=== PATIENT | male | born 1950 | race Caucasian/White ===

== ENCOUNTER → 2023-08-17 10:21 | Outpatient (BNVA) | payer OTHER, SELFPAY | PROVIDERS: PCP Nurse Practitioner Family; Visit Provider Nurse Practitioner Family | DX: J98.8 Other specified respiratory disorders (principal); Z13.6 Encounter for screening for cardiovascular disorders; Z12.5 Encounter for screening for malignant neoplasm of prostate; Z13.29 Encounter for screening for other suspected endocrine disorder; Z12.2 Encounter for screening for malignant neoplasm of respiratory organs | CPT/HCPCS: 80053; 80061; 84443; 85025; G0103 ==

== ENCOUNTER 2023-10-11 08:31 | Outpatient (CLI) | payer OTHER, SELFPAY ==
--- NOTE | 2023-10-11 09:00 | CT_ITS ---
WS: [id number] LDCT LUNG CANCER SCREENING HISTORY: Z12.2 - Encounter for screening for malignant neoplasm of... TECHNIQUE: Axial imaging performed from the apices to 1 cm below the costophrenic angles. Coronal and sagittal reformats are submitted with axial MIP series. All CT scans at [facility] use at least one of these dose optimization techniques: automated exposure control; mA and/or kV adjustment per patient size (includes targeted exams where dose is matched to clinical indication); or iterativ e reconstruction. DLP: 54.10 mGy.cm DIvol: Mean CTDIvol: 0.80 (mGy) COMPARISON: None available. Diagnostic quality: Satisfactory Lungs: 3 mm noncalcified nodule RIGHT upper lobe, image 120 of series 5. There are a few benign scatt ered calcified granulomata. No mass or additional nodules. Heart: Normal size heart with no pericardial effusion.. Other findings: Mild atherosclerosis aorta. Small mediastinal and hilar lymph nodes. Small hiatal her radha. No adrenal mass. CT/CT lung screening [id number] IMPRESSION: LUNG-RADS: 2-Benign Appearance or Behavior FOLLOW UP: 12 Month: Continue annual screening with LDCT OTHER FINDINGS (S MODIFIER): None.
== END 2023-10-11 08:32 | disposition home or self-care (01) ==
PROVIDERS: PCP Nurse Practitioner Family; Visit Provider Nurse Practitioner Family
DX: Z12.2 Encounter for screening for malignant neoplasm of respiratory organs (principal); R91.1 Solitary pulmonary nodule; J84.10 Pulmonary fibrosis, unspecified
CPT/HCPCS: 71271

== ENCOUNTER → 2024-05-09 14:24 | Outpatient (BNVA) | payer MEDICARE, SELFPAY | PROVIDERS: PCP Nurse Practitioner Family; Visit Provider Nurse Practitioner Family | DX: J44.9 Chronic obstructive pulmonary disease, unspecified (principal); R91.1 Solitary pulmonary nodule | CPT/HCPCS: 71046 ==

== ENCOUNTER 2024-05-24 10:44 | Outpatient (CLI) | payer MEDICARE, SELFPAY ==
[2024-05-24 11:08] VITALS: PULSE 60; RESP 18; O2SAT 95
[2024-05-24] MEDS: albuterol 2.5 mg/3 mL Neb INHALATION (11:08)
== END 2024-05-24 10:45 | disposition home or self-care (01) ==
PROVIDERS: PCP Nurse Practitioner Family; Visit Provider Nurse Practitioner Family
DX: J44.9 Chronic obstructive pulmonary disease, unspecified (principal); J98.8 Other specified respiratory disorders
CPT/HCPCS: 94060; 94726; 94729; J7613

== ENCOUNTER 2024-06-28 13:31 | Outpatient (CLI) | payer MEDICARE, SELFPAY ==
[2024-06-28] MEDS: iohexol 350 mg/mL 500 mL Btl (per mL) PO (13:42)
--- NOTE | 2024-06-28 14:00 | CT_ITS ---
WS: [id number] CT ABDOMEN AND PELVIS WITH CONTRAST HISTORY: R14.0 - Abdominal distension (gaseous) TECHNIQUE: Imaging performed of the abdomen and pelvis with IV contrast. Single phase imaging of the abdomen. Coronal and sagittal reformats are submitted. All CT scans at [facility] use at least one of these dose optimization techniques: automated exposure control; mA and/or kV adjustment per patient size (includes targeted exams where dose is matched to clinical indication); or iterative reconstruction. IV CONTRAST: Omnipaque 350; 100 mL IV. Oral contrast: Yes. DLP: 350.31 mGy.cm COMPARISON: None available. Lower thorax: Hypoexpanded lung bases. No pulmonary mass. Mild dependent changes at the lung bases. These dependent changes are new since 10/11/2023. There is a slight nodular component measuring 6.7 mm at the LEFT lung base. Heart is normal size. Small hiatal hernia. Liver/biliary system: Too small to characterize 3 mm low-attenuation nodule in the posterior RIGHT lobe of the liver. Portal vein is normal. Gallbladder: Normal. No gallstones or wall thickening. No pericholecystic fluid. Pancreas: Normal size pancreas and pancreatic duct. No adjacent inflammation. Spleen: Normal size with granulomata. Adrenal glands: Normal. Right kidney: Normal. Left kidney: Normal. Aorta: Mild atherosclerosis with no aneurysm. Lymphadenopathy: None. Free fluid: None. GI tract: Stomach is not distended. No small bowel obstruction. Appendix is not definitely identified. There is no evidence for appendicitis. Mild diffuse constipation. There are a few sigmoid diverticula. No acute diverticulitis. Mild narrowing of the distal colon but there is no mass. Abdominal wall: Fat containing umbilical hernia. Pelvis: Normally distended urinary bladder. Mild prostate enlargement. There is a small nodule in the presacral space measuring 8 mm. Closely associated with the rectum. No additional nodules are identified. Bones: L5-S1 mild facet joint arthropathy. CT/CT abdomen pelvis w con* [id number] IMPRESSION: 1. Mild diffuse constipation. No colitis or stricture identified. 2. No ascites. 3. Indeterminate 8 mm RIGHT presacral nodule. May be a small lymph node. No ad ditional adenopathy. Consider follow-up CT evaluation in 3 months. 4. Mild atherosclerosis aorta 5. No renal obstruction. 6. Chronic emphysema. New 6.7 mm nodule at the LEFT lung base associated with linear atelectasis. This can be reevaluated also in 3 months. 7. Small hiatal hernia.
[2024-06-28 14:33] LABS: Blood Urea Nitrogen 15 mg/dL (8-23)
[2024-06-28] MEDS: iohexol 350 mg/mL 500 mL Btl (per mL) IV (15:53)
== END 2024-06-28 13:32 | disposition home or self-care (01) ==
LOC: RAD 13:33
PROVIDERS: PCP Nurse Practitioner Family; Visit Provider Nurse Practitioner Family
DX: R10.9 Unspecified abdominal pain (principal); R10.819 Abdominal tenderness, unspecified site; K59.00 Constipation, unspecified; R19.09 Other intra-abdominal and pelvic swelling, mass and lump; I70.0 Atherosclerosis of aorta; J43.8 Other emphysema; R91.1 Solitary pulmonary nodule; K44.9 Diaphragmatic hernia without obstruction or gangrene; R91.8 Other nonspecific abnormal finding of lung field; D73.89 Other diseases of spleen; K57.30 Diverticulosis of large intestine without perforation or abscess without bleeding; R93.89 Abnormal findings on diagnostic imaging of other specified body structures; K42.9 Umbilical hernia without obstruction or gangrene; N40.0 Benign prostatic hyperplasia without lower urinary tract symptoms; M47.897 Other spondylosis, lumbosacral region
CPT/HCPCS: 74177; 82565; 84520

== ENCOUNTER 2024-09-07 12:38 | Outpatient (CLI) | payer MEDICARE, SELFPAY ==
[2024-09-07] MEDS: iohexol 350 mg/mL 500 mL Btl (per mL) PO (13:35)
[2024-09-07 13:40] LABS: Blood Urea Nitrogen 13 mg/dL (8-23)
--- NOTE | 2024-09-07 13:45 | CTR_ITS ---
PROCEDURE INFORMATION: Exam: CT Abdomen And Pelvis With Contrast Exam date and time: 09/07/2024 1:44 PM Age: 73 years old Clinical indication: Abnormal findings; Abnormal radiologic finding of the abdomen; Prior surgery; Surgery date: 6+ months; Surgery type: Hernia, appy; Follow up to CT abd/pel on 06-28-24; Additional info: R19.09 - other intra-abdominal and pelvic swelling, mass . . . , schedule in 10 weeks TECHNIQUE: Imaging protocol: Computed tomography of the abdomen and pelvis with contrast. Radiation optimization: All CT scans at this facility use at least one of these dose optimization techniques: automated exposure control; mA and/or kV adjustment per patient size (includes targeted exams where dose is matched to clinical indication); or iterative reconstruction. Contrast material: OMNIPAQUE 350; Contrast volume: 100 ml; Contrast route: INTRAVENOUS (IV); Other contrast: Oral, OMNIPAQUE 350, 50; COMPARISON: CT abdomen pelvis w con* [id number] 06/28/2024 2:40 PM RADIATION DOSE METRICS: Total DLP (mGy-cm): 376.57 FINDINGS: Liver: Normal. No mass. Gallbladder and biliary ducts: Normal. No calcified stones. No ductal dilation. Pancreas: Normal. No ductal dilation. Spleen: Normal. No splenomegaly. Adrenal glands: Normal. No mass. Kidneys and ureters: Normal. No hydronephrosis. Stomach and bowel: Likely constipation with a large amount of colonic fecal material observed. Appendix: No evidence of appendicitis. Intraperitoneal space: Unremarkable. No free air. No significant fluid collection. Vasculature: Unremarkable. No abdominal aortic aneurysm. Lymph nodes: Unremarkable. No enlarged lymph nodes. Urinary bladder: Unremarkable as visualized. Reproductive: Unremarkable as visualized. Bones/joints: Unremarkable. No acute fracture. Soft tissues: Unremarkable. Other findings: Stable 8 mm nodular density just to the right of the midline at the level of the low sacrum is unchanged. It has a slightly thickened wall and appears to be cystic. CT/CT abdomen pelvis w con* [id number] IMPRESSION: Stable 8 mm nodule in the presacral space to the right of the midline. While likely benign etiology is unknown. Additional follow-up CT in 9-12 months recommended.
[2024-09-07] MEDS: iohexol 350 mg/mL 500 mL Btl (per mL) IV (13:51)
== END 2024-09-07 12:39 | disposition home or self-care (01) ==
PROVIDERS: PCP Nurse Practitioner Family; Visit Provider Nurse Practitioner Family
DX: R19.09 Other intra-abdominal and pelvic swelling, mass and lump (principal)
CPT/HCPCS: 74177; 82565; 84520

== ENCOUNTER → 2024-12-27 10:38 | Outpatient (BNVA) | payer MEDICARE, SELFPAY | PROVIDERS: PCP Nurse Practitioner Family; Visit Provider Nurse Practitioner Family | DX: R30.0 Dysuria (principal) | CPT/HCPCS: 81000 ==

== ENCOUNTER 2025-02-18 15:27 | Emergency (ER) | payer MEDICARE, SELFPAY ==
--- OUTSIDE RECORDS SUMMARY | 2024-12-25 07:00 | XMS_ITS ---
Author Organization [facility] Address [address] [place] [id number] Care Team Providers Care Company Driver Name Role Phone Linda Liao (Kayly) Primary Care Provider U Bridger Galindo [phone] Encounters Encounter Location Date Provider Diagnosis [facility] [address] [place] [address] [place] [address] 12/25/2024 Bridger Thorpe Plan Of Treatment Next Appt Details Provider Name:Bridger Thorpe, 11/01/2025 11:20:00 AM, [address] [place] [address] DR [place] [address] [place] [address], [phone], Progress Notes * ESTHER SLAUGHTER LDOB:[birth year] (74 yo M)Acc No.[id number]:12/25/2024 Progress Notes Patient: ESTHER ALFONSO Provider: Christel Thorpe MD :1950 A ge:74 Y S ex:Male Date:12/25/2024 Address:[address] [id number] Pcp:CELI Farrell (Kayly) * Electronic signature of Esther Thorpe MD on 02/18/2025 at 03:37 PM RAILROAD OPERATOR Sign off status: Pending * Provider: Christel Thorpe MD Date: 0 12/25/2024 Generated for Gris felder/Mera/Lauraitting on: 04/20/2024 03:37 PM RAILROAD OPERATOR
[2025-02-18] VITALS (9 sets, daily range): BP systolic 141–151; BP diastolic 72–76; PULSE 82; TEMP 36.4; O2SAT 83–95; BMI 22.4
--- OUTSIDE RECORDS SUMMARY | 2025-02-18 15:37 | XMS_ITS | Clinical Summary ---
Author Organization [facility] Address [address] 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
--- OUTSIDE RECORDS SUMMARY | 2025-02-18 15:37 | XMS_ITS | Clinical Summary ---
Author Organization [facility] Address [address] [place] [address] Phone Care Team Providers Care Kitchen Porter Name Role Phone Unavailable Primary Care Provider Unavailabl e Allergies Active Allergy Reactions Criticality Noted Date Comments Sulfa (Sulfonamide Antibiotics) Unknown 04/29 Medications famotidine (PEPCID) 20 mg Oral tablet Take 1 Tab by mouth 2 times daily. 60 Tab None 0 Active oxazepam (SERAX) 15 mg Oral capsule Take 1 Cap by mouth 4 times daily as needed. 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 Gender Identity Not on file Sexual Orientation Not on file Last Filed Vital Signs Vital Sign Reading Time Taken Comments Blood Pressure 175/96 05/16/2009 2:40 AM BOATWRIGHT Pulse 89 05/16/2009 2:40 AM BOATWRIGHT Temperature 37.1 C (98.8 F) 05/15/2009 10:55 PM BOATWRIGHT Respiratory Rate 20 05/16/2009 2:40 AM BOATWRIGHT Oxygen Saturation 96% 05/16/2009 2:40 AM BOATWRIGHT Inhaled Oxygen Concentration - - Weight 83.9 kg (185 lb) 05/15/2009 10:55 PM BOATWRIGHT Height 185.4 cm (6' 1 ) 05/15/2009 10:55 PM BOATWRIGHT Body Mass Index 24.41 05/15/2009 10:55 PM BOATWRIGHT Plan of Treatment Health Maintenance Due Date Last Done Comments DTAP/TDAP/TD VACCINES (1 - Tdap) 10/07/1971 COLORECTAL SCREENING 1997 Colorectal Cancer Screening 1997 FIT-DNA Q 3 years 1997 FIT/FOBT Q 1 year 1997 Flex Sig/CT Colonography Q 5 years 1997 PNEUMOCOCCAL VACCINE 50+ YEARS (1 of 1 - PCV) 10/07/19 03 ZOSTER VACCINE (1 of 2) 2002 INFLUENZA VACCINE (#1) 2024 RSV VACCINE (60+ or ) (1 - 1-dose 75+ series) 10/07/2027
--- OUTSIDE RECORDS SUMMARY | 2025-02-18 15:37 | XMS_ITS | Patient Health Record ---
Author Organization [facility] Address [address] [place] [address] Care Team Providers Care Remote Operations Producer Name Role Phone Linda Liao (Kayly) Primary Care Provider U Bridger Galindo Unavailable [phone] Allergies Allergen (clinical drug ingredient) Drug/Non Drug Allergy documented on EMR Reaction Allergy Type Onset Date Status Penicillin Unknown Drug Allergy Active Substance with sulfonamide structure and antibacterial mechanism of action (substance) Sulfa Antibiotics Unknown Drug Allergy Active Results Component Value Reference Range Notes CT Chest w/o Contrast diagno [id number] Reviewed date:11/08/2024 11:55:18 AM Interpretation: Performing Lab: Notes/Report: tkg=[id number]&org=iSite CT Chest w/o Contrast diagno stic-[id number] Reviewed date:11/08/2024 11:55:18 AM Interpretation: Performing Lab: Notes/Report: See Below For Report CT Chest w/o Contrast Read See Below For Report Schedule Confirmation Reviewed date:11/08/2024 11:55:18 AM Interpretation: Performing Lab: Notes/Report: CT Chest w/o Contrast Schedule Confirmation Reviewed date:10/17/2024 03:37:18 PM Interpretation: Performing Lab: Notes/Report: CT Chest w/o Contrast Reason For Referral Reason COPD / Solitary Pulm onary Nodule PFT and CXR order placed, per referral notes - 06/06: PFT received 3/12: 6 mons per Maurilio Scheduled 12/25/2024 @ 1 PM Diagnosis 1 Chronic obstructive pulmonary disease, unspecified (J44.9) Diagnosis 2 Solitary pulmonary n odule (R91.1) Referring Provider First Name Linda guerra' Referring Provider Last Name Referring Provider Speciality Nurse Prac titioner Referred Organization [facility] Referred Provider Bridger Thorpe Referred Address [address] [place] [address] [address] [place],[address],[place] Referred Provider Specialty Pulmonary Di seases General Notes Gwendolyn Valente 025 12:56:05 PM >PFT report received. In Outside Records, Berenice Gutierrez 06/07/2024 03:30:07 PM >312: Gave Maurilio CXR report 05/09/2024, Berenice Gutierrez 06/07/2024 03:34:16 PM >312: 6 mons per Matt Thorpe Meranda 06/07/2024 04:10:35 PM >Scheduled 12/25/2024 @ 1 PM Referral Priority Routine Medications Medication SIG (Take, Route, Frequency, Duration) Notes Start Date End Date Status Trelegy Ellipta 100-62.5-25 MCG/ACT Aerosol Powder Breath Activated 1 puff (rinse mouth after use) Inhalation Once a day; Duration: 90 days Active Albuterol Sulfate HFA 108 (90 Base) MCG/ACT Aerosol Solution 1 puff as needed Inhalation every 4 hrs Active Vitamin E Active Zinc Active Vitamin D Active Multivitamin Active Fish Oil Active Social History Tobacco Use: Social History Observation Description Date Details (start date - stop date) Former Smoker NA - NA Social History Tobacco Use: Social Info Question Answer Notes Tobacco Control (Standard) Tobacco use: Former smoker How long has it been since you last smoked? 5-10 years Problems Problem Type SNOMED Code ICD Code Onset Dates Problem Status W/U Status Risk Notes Problem Tobacco user (789660042) Nicotine dependence, cigarettes, in remission (F17.211) Active confirmed Problem Solitary pulmonary nodule (834511542) Solitary pulmonary nodule (R91.1) Active confirmed Problem Radiology result abnormal (397376951) Abnormal chest CT (R93.89) Active confirmed Problem Chronic obstructive pulmonary disease (68717379) Stage 3 severe COPD by GOLD classification (J44.9) Active confirmed Problem Chronic respiratory failure (72497204) Chronic hypoxic respiratory failure (J96.11) Active confirmed Vital Signs Heart Rate 67 /min 11/01/2024 Walked patient in clinic. O2 lowest point was 88%. Put on 2L. Stable at 95% o2 Temperature 97.3 degrees Fahrenheit 11/01/2024 Walk ed patient in clinic. O2 lowest point was 88%. Put on 2L. Stable at 95% o2 Respiratory Rate 16 /min 10/16/2024 Height-cm 182.88 cm 11/01/2024 Walked patient in clinic. O2 lowest point was 88%. Put on 2L. Stable at 95% o2 Oximetry 92 % 11/01/2024 Walked patient in clinic. O2 lowest point was 88%. Put on 2L. Stable at 95% o2 Blood pressure diastolic 66 mm Hg 11/01/2024 Wal ked patient in clinic. O2 lowest point was 88%. Put on 2L. Stable at 95% o2 Weight-kg 83.3 kg 11/01/2024 Walked patient in clinic. O2 lowest point was 88%. Put on 2L. Stable at 95% o2 Height 72 in 11/01/2024 Walked patient in clinic. O2 lowest point was 88%. Put on 2L. Stable at 95% o2 Blood pressure systolic 113 mm Hg 11/01/2024 Walk ed patient in clinic. O2 lowest point was 88%. Put on 2L. Stable at 95% o2 Weight 183.64 lbs 11/01/2024 Walked patient in clinic. O2 lowest point was 88%. Put on 2L. Stable at 95% o2 BMI 24.9 kg/m2 11/01/2024 Walked patient in clinic. O2 lowest point was 88%. Put on 2L. Stable at 95% o2 Procedures Procedure Date Ordered Date Performed Result Body Sit e Overnight Oximetry 10/16/2024 N/A Encounters Encounter Location Date Provider Diagnosis [facility] [address] [place] [address] [place] [address] 11/01/2024 Bridger Thorpe Stage 3 severe COPD by GOLD classification J44.9 ; Nicotine dependence, cigarettes, in remission F17.211 ; Abnormal chest CT R93.89 ; Shortness of breath R06.02 and Chronic hypoxic respiratory failure J96.11 [facility] [address] [place] [address] [place] [address] 10/16/2024 Bridger Thorpe Stage 3 severe COPD by GOLD classification J44.9 ; Nicotine dependence, cigarettes, in remission F17.211 ; Abnormal chest CT R93.89 and Shortness of breath R06.02 [facility] [address] [place] [address] [place] [address] 10/25/2024 Bridger Thorpe [facility] [address] [place] [address] [place] [address] 10/10/2024 Bridger Thorpe [facility] [address] [place] [address] [place] [address] 11/02/2024 Bridger Thorpe Assessments Encounter Date Diagnosis (ICD Code) Assessment Notes Treatment Notes Treatment Clinical Notes Section Notes 10/16/2024 Nicotine dependence, cigarettes, in remission (ICD-10 - F17.211) Patient smoked a [id number] for 48 years. He has been abstinent since 2018. Obtain Chest CT for lung cancer screening 10/16/2024 Stage 3 severe COPD by GOLD classification (ICD-10 - J44.9) Stage III COPD I told him to monitor his oxygen saturation levels with exertion. He is to use his albuterol and keep it handy when he goes outdoors. Continue Albuterol HFA as needed. Continue Trelegy. I will decrease this to 100mcg. 11/01/2024 Nicotine dependence, cigarettes, in remission (ICD-10 - F17.211) Patient smoked a [id number] for 48 years. He has been abstinent since 2018. 11/01/2024 Stage 3 severe COPD by GOLD classification (ICD-10 - J44.9) Stage III COPD Continue Albuterol HFA as needed. Continue Trelegy. 10/16/[address] (ICD-10 - R93.89) Calcified nodules. Obtain chest CT. 11/01/[address] (ICD-10 - R93.89) Calcified nodules. Obtain chest CT. 11/01/2024 Shortness of breath (ICD-10 - R06.02) 10/16/2024 Shortness of breath (ICD-10 - R06.02) If the patients oxygen saturation is in the mid to low 90's again next visit we will walk him for titration. Obtian overnight oximetry on room air. 11/01/2024 Chronic hypoxic respiratory failure (ICD-10 - J96.11) Patients room air oxygen saturation at rest was 93%. His ambulatory saturation on room air was 88%. He was placed on 2Lpm conserving which brought him up to 95%. I will order him daytime oxygen. Patient also had significant desaturation on overnight oximetry. I would have him use his oxygen at night as well to maintain a saturation above 88%. DME: Gabbi 10/16/2024 Other Lisa Yao, kandace scribing for, and in the presence of Dr. Bridger Thorpe. I, Dr. Bridger Thorpe, personally performed the services described in this documentation, as scribed by Lisa Hilliard in my presence, and it is both accurate and complete. 11/01/2024 Other Lisa Yao am scribing for, and in the presence of Dr. Bridger Thorpe. I, Dr. Bridger Thorpe, personally performed the services described in this documentation, as scribed by Lisa Hilliard in my presence, and it is both accurate and complete. Plan Of Treatment Pending Test Test Name Order Date Overnight Oximetry 10/16/2024 Future Test Test Name Order Date CT Chest w/o Contrast diagnostic-[id number] 10/18/2025 Next Appt Details Provider Name:Bridger Thorpe, 11/01/2025 11:20:00 AM, [address] [place] [address] [address] [place], [place], [address], Insurance Providers Payer Name Payer Address Payer Phone Subscriber Number Group Number Insured Name Patient Relationship to Insured Coverage Start Date Coverage End Date [employer] Medicare Replacement [address] [place] [address] [id number] ESTHER SLAUGHTER Self - patient is the insured [place] [address] [place] [phone] [id number] ESTHER SLAUGHTER Self - patient is the insured Medical (General) History Medical History History ICD Code Pneumonia Hernia Surgical History Surgery Date(Month/Year) appendectomy 1958 hernia 1957 Hospitalization History Reason Date(Month/Year) See Above Broken Pelvis 1973
--- NOTE | 2025-02-18 15:40 | W.ED.TRAUMA ---
HPI - Trauma General: Chief Complaint: Trauma Stated Complaint: tree stand Time Seen by Provider: 02/18/25 15:40 Source: patient and family Mode of arrival: ambulatory Limitations: no limitations History of Present Illness: Patient is in a 74-year-old male presents to ED today following a fall from a deer stand. He states that the stand fell from the tree and he essentially rode it down . Patient states he did strike the right side of his scalp on the ground. No LOC. He is not on anticoagulation. He does have an abrasion and possible laceration here. Tetanus is not up-to-date. He states his neck feels sore but overall not much discomfort. He has been ambulatory without difficulty or assistance since the fall. He has no pain to his back or chest. No abdominal pain. His main complaint seems to be pain to his distal left wrist. He states he has broke this wrist before. MD complaint: fall Onset (ago): hour(s) Loss of Consciousness: no Location: head Location - Extremities: Left: wrist Severity: moderate Associated symptoms: Reports headache(s); Denies abdominal pain, back pain, chest pain, dizziness, epistaxis or syncope Related Data Previous Rx's ?Medication ?Instructions ?Recorded compressor, for nebulizer #1 ea 06/13/24 nebulizer accessories #1 ea 06/13/24 fluticasone fur. 200 mcg-umeclid 1 inh inhalation DAILY #60 ea 09/07/24 62.5 mcg-vilant 25 mcg inhalat.powder (Trelegy Ellipta) albuterol sulfate 90 mcg/actuation 2 puff inhalation QID PRN 09/25/24 aerosol inhaler shortness of breath or wheezing #6.7 grams cyclobenzaprine 10 mg tablet 10 mg PO .HS #14 tabs 12/27/24 doxycycline hyclate 100 mg capsule 100 mg PO BID #14 caps 02/05/25 prednisone 20 mg tablet 20 mg PO BID #10 tabs 02/05/25 hydrocodone 5 mg-acetaminophen 325 1 tab PO Q6H PRN pain #14 tabs 02/18/25 mg tablet Allergies Allergy/AdvReac Type Severity Reaction Status Date / Time Penicillins Allergy Unknown Unknown Verified 02/18/25 15:38 Sulfa (Sulfonamide Allergy Unknown Unknown Verified 02/18/25 15:38 Antibiotics) Review of Systems Eyes: Denies: change in vision, blurry vision, photophobia, eye discharge, floaters or seeing flashes ENMT: Denies: throat pain, odynophagia, ear or mastoid pain, ear discharge, nasal discharge, epistaxis or sinus pain Card: Denies: chest pain, palpitations, lightheadedness, syncope or pre-syncope Resp: Denies: dyspnea or pain on inspiration GI: Denies: abdominal pain : Denies: flank pain or hematuria Musc: Reports: neck pain, joint pain (L wrist) and joint swelling (L wrist); Denies: back pain or extremity pain Skin/Breast: Reports: other (R scalp abrasion) Neuro: Reports: headache(s); Denies: numbness in extremities, weakness in extremities, sensory changes or dizziness PFSH ED PFSH: Social History Smoking and tobacco/nicotine status: former use of tobacco/nicotine Quit status (tobacco/nicotine): has quit using Year quit tobacco: 7-8 YEARS AGO Second hand smoke exposure: No Alcohol intake: never Substance/Drug Use: never Adopted: No Caregiver/support person: No Lives independently: Yes Household members: spouse Housing: House Marital status: Highest education level completed: Some College, No Degree service: No Current occupational status: employed Pets and animals: No Physical Exam Const: COMMON NORMALS: no acute distress, average body habitus, patient oriented x3, no limitations, healthy appearing, alert and well nourished GENERAL APPEARANCE: cooperative ORIENTATION/CONSCIOUSNESS: Yes awake, Yes oriented to person, Yes oriented to place and Yes oriented to time HENMT: COMMON NORMALS: normocephalic and TM's normal bilaterally HEAD & SCALP: normocephalic and other (R minor parietal scalp abrasion/small laceration); no More's sign, no hematoma, no laceration, no palpable skull fracture and no raccoon eyes FACE & SINUS: normal facial exam TYMPANIC MEMBRANE: TM's normal bilaterally MOUTH: other (no intraoral injuries noted) Eye: COMMON NORMALS: Equal, round and reactive pupils present and EOMs intact bilaterally GENERAL EYE: appearance normal, both eyes and all related structures and normal light reflex PUPIL: Yes Equal, round and reactive pupils present DIRECT OPHTHALMOSCOPY: Yes normal light reflex Neck/C-Spine: GENERAL: Yes normal visual inspection CERVICAL SPINE: Yes cervical ROM normal, No pain with cervical ROM, Yes Cervical spine tenderness (mild-states feels sore), No step off deformity, No Paracervical muscle tenderness and No Trapezius muscle tenderness Chest: COMMONS NORMALS: normal inspection of the chest and normal palpation of entire chest wall Resp: COMMON NORMALS: normal respiratory effort and clear to auscultation bilaterally AUSCULTATION: clear to auscultation bilaterally Cardio: COMMON NORMALS: regular rate and regular rhythm RATE: regular rate RHYTHM: regular rhythm GI: COMMON NORMALS: Normal to inspection, nondistended, normoactive bowel sounds present, Soft to palpation, non-tender, No hepatosplenomegaly present and no masses INSPECTION: Yes normal to inspection and No abdominal wall ecchymosis AUSCULTATION: Yes normoactive bowel sounds PALPATION: Yes Soft to palpation and Yes No hepatosplenomegaly present Back/Pelvis: COMMON NORMALS: thoracic and lumbar spine normal to inspection, no thoracic nor lumbar tenderness and thoraco-lumbar ROM normal Extremity: COMMON NORMALS: capillary refill normal GENERAL: Yes normal exam except as noted LEFT UPPER EXTREMITY: Yes wrist (TTP/edema distal L wrist) Left wrist: Yes ROM (limited due to pain) and Yes neurovascular exam (normal) Neuro: DANETTE COMA SCALE: document GCS findings [place] coma scale eye opening: Spontaneous [place] coma scale verbal response: Orientated [place] coma scale motor response: Obey commands Danette coma scale total score: 15 COMMON NORMALS: patient oriented x3, CN's II-XII intact bilaterally, moves all extremities, no focal motor deficits, no sensory deficits noted and gait normal SENSORIUM/ORIENTATION: Yes alert, Yes oriented to person, Yes oriented to place and Yes oriented to time SPEECH: speech normal GAIT: Yes Normal gait present Skin: COMMON NORMALS: no rashes or lesions noted GENERAL SKIN EXAM: no rashes or lesions noted TRAUMA: abrasion (R scalp abrasion) and laceration Procedures Laceration Laceration 1: Site: scalp Side (If applicable): right Size (cm): 2.0 Description: linear Depth: simple, single layer Local Anesthetic: lidocaine 1% and with epi Amount of anesthesia used (mL): 2.0 Pre-repair: wound explored and irrigated extensively Skin layer closed with: other (naye) Number of sutures: 4 Course Vital Signs: Vital signs: Vital Signs Temperature 97.5 F L 02/18/25 15:30 Pulse Rate 82 02/18/25 15:30 Blood Pressure 141/76 02/18/25 16:40 Pulse Oximetry 90 02/18/25 16:40 Oxygen Delivery Me thod Room Air 02/18/25 15:30 MDM - Trauma Medical Decision Making Patient is in a 74-year-old male here after he fell from a deer stand. His only physical complaint upon arrival is a headache and left wrist pain. He did complain of his neck feeling sore. CT imaging of his head and neck obtained and unremarkable. He does have a left distal radial fracture. This will be splinted and he will follow-up with ortho. He did have a small scalp laceration that was copiously irrigated and repaired using naye. Wound care/infection precautions discussed. Medical Records I reviewed the patient's medical records. Lab Data Radiology Impressions Cervical Spine CT 02/18/25 15:46 IMPRESSION: 1. No acute cervical spine fracture. 2. Central disc herniation at C3-C4 and C4-C5, age indeterminate. 3. Significant neural foraminal stenosis on the right at C5-C6 and on the left at C6-C7 due to prominent hypertrophic changes at the uncovertebral joints. COMMENTS: Consistent with the [employer] [place] [employer]'s Incidental Findings Committee white paper (J Am Amelie Radiol 2015): In patients aged 35 years and older with an incidental thyroid nodule equal to or greater than 1.[address], MRI or extrathyroidal US, further evaluation with dedicated thyroid US is recommended for patients with normal life expectancy and without comorbidities. For smaller nodules without suspicious features, no further evaluation or follow up is recommended. Head CT 02/18/25 15:46 IMPRESSION: 1. No acute intracranial bleed. 2. Chronic small vessel ischemic disease. 3. Atrophic and/or age-related volume loss. Wrist X-Ray 02/18/25 15:46 IMPRESSION: Comminuted intra-articular pilon fracture of the distal radius. No identified significant articular step-off. All radiology interpretation(s) finalized by discharge Discharge Plan Discharge Patient Disposition: Home Clinical Impression: Fall from tree Qualifiers: Encounter type: initial encounter Qualified Code(s): W14.XXXA - Fall from tree, initial encounter Closed fracture of distal end of left radius Qualifiers: Encounter type: initial encounter Fracture morphology: unspecified fracture morphology Qualified Code(s): S52.502A - Unspecified fracture of the lower end of left radius, initial encounter for closed fracture Laceration of scalp Qualifiers: Encounter type: initial encounter Qualified Code(s): S01.01XA - Laceration without foreign body of scalp, initial encounter Condition: Stable Prescriptions: New hydrocodone-acetaminophen 5-325 mg tablet 1 tab PO Q6H PRN (Reason: pain) Qty: 14 0RF No Action (DME) nebulizer accessories Misc See Rx Instructions .Route Qty: 1 0RF Rx Instructions: As directed (DME) compressor, for nebulizer Device See Rx Instructions .Route Qty: 1 0RF Rx Instructions: As directed cyclobenzaprine 10 mg tablet 10 mg PO .HS Qty: 14 0RF doxycycline hyclate 100 mg capsule 100 mg PO BID Qty: 14 0RF prednisone 20 mg tablet 20 mg PO BID Qty: 10 0RF Trelegy Ellipta 200-62.5-25 mcg blister with device 1 inh inhalation DAILY Qty: 60 11RF albuterol sulfate 90 mcg/actuation HFA aerosol inhaler 2 puff inhalation QID PRN (Reason: shortness of breath or wheezing) Qty: 6.7 5RF Discharge Orders: Discharge ED (Routine); Ordered 02/18/25 Ordered By: Nan Arredondo Referrals: Linda Lee FNP-C [Primary Care Provider, Family Practice] Patient Instructions: Wrist Fracture in Adults (ED), Patient Portal & Rin Instructions Activity Restrictions/Additional Instructions: As we discussed, imaging of your head and neck were unremarkable. You did have a fracture involving your left wrist. We will splint this and you should hear from case management this week to help set you up with your follow-up orthopedic appointment. You may take the prescribed pain medication sparingly as needed for significant discomfort. You may return to the emergency department for any further concerns you may have. Keep scalp wound clean with warm soap and water several times daily. Naye can be removed in a week. Print Language: Gambian Coding Level of Care Code ED Biochemistry Technologist for Artemio Thornton
--- NOTE | 2025-02-18 15:46 | CTR_ITS ---
PROCEDURE INFORMATION: Exam: CT Cervical Spine Without Contrast Exam date and time: 02/18/2025 3:55 PM Age: 74 years old Clinical indication: Injury or Trauma; Blunt Trauma; fall from deer stand; Additional Info: trauma, fall TECHNIQUE: Imaging protocol: Computed tomography of the cervical spine without contrast. Radiation optimization: All CT scans at this facility use at least one of these dose optimization techniques: automated exposure control; mA and/or kV adjustment per patient size (includes targeted exams where dose is matched to clinical indication); or iterative reconstruction. COMPARISON: CT lung screening [id number] 10/11/2023 9:00 AM RADIATION DOSE METRICS: Total DLP (mGy-cm): 223.1 FINDINGS: Bones/joints: No acute fracture. Normal alignment. C2-C3: No significant disc bulge or herniation. No severe spinal canal stenosis. No significant neural foraminal narrowing. C3-C4: Moderate focal central disc herniation measuring 14 mm at the base and extending into the canal 4 mm. There is 8 mm of residual distance compatible with mild central spinal canal stenosis. No significant neural foraminal narrowing. C4-C5: Pnyq-ih-pkpowhvw focal central disc herniation measuring 10 mm at the base and extending into the canal 4 mm. There is 8 mm of residual distance compatible with mild central spinal canal stenosis. Moderate right neural foraminal narrowing. C5-C6: Large right posterior osteophyte and hypertrophic change at the uncovertebral joint. No significant disc bulge or herniation. [id number]-[id number] right spinal canal stenosis. Moderate to severe right neural foraminal narrowing. C6-C7: Large left posterior osteophyte and hypertrophic change at the uncovertebral joint. No significant disc bulge or herniation. Hxfl-vw-uffyrhcu left spinal canal stenosis. Moderate to severe left neural foraminal narrowing. C7-T1: No significant disc bulge or herniation. No severe spinal canal stenosis. No significant neural foraminal narrowing. Thyroid: Thyroid gland demonstrates 9 mm hypodense area along the posteromedial margin of the left lobe which may represent a focal thyroid nodule or perhaps left-sided parathyroid gland. Lungs: Lung apices are normal. Soft tissues: Unremarkable. CT/CT cervical spin wo con* [id number] IMPRESSION: 1. No acute cervical spine fracture. 2. Central disc herniation at C3-C4 and C4-C5, age indeterminate. 3. Significant neural foraminal stenosis on the right at C5-C6 and on the left at C6-C7 due to prominent hypertrophic changes at the uncovertebral joints. COMMENTS: Consistent with the [place] [employer]'s Incidental Findings Committee white paper (J Am Amelie Radiol 2015): In patients aged 35 years and older with an incidental thyroid nodule equal to or greater than 1.[address], MRI or extrathyroidal US, further evaluation with dedicated thyroid US is recommended for patients with normal life expectancy and without comorbidities. For smaller nodules without suspicious features, no further evaluation or follow up is recommended.
--- NOTE | 2025-02-18 15:46 | CTR_ITS ---
PROCEDURE INFORMATION: Exam: CT Head Without Contrast Exam date and time: 02/18/2025 3:55 PM Age: 74 years old Clinical indication: Injury or Trauma; Fall; Concussion/head injury; Without loss of consciousness; Additional Info: trauma/fall TECHNIQUE: Imaging protocol: Computed tomography of the head without contrast. Radiation optimization: All CT scans at this facility use at least one of these dose optimization techniques: automated exposure control; mA and/or kV adjustment per patient size (includes targeted exams where dose is matched to clinical indication); or iterative reconstruction. COMPARISON: No prior exams are available for comparison. RADIATION DOSE METRICS: Total DLP (mGy-cm): 1117 FINDINGS: Brain: There is no intracranial mass, mass effect or midline shift. No acute intracranial hemorrhage identified. No abnormal extra-axial fluid collections are appreciated. Cortical sulci are mildly enlarged. Some areas of low density are noted in the periventricular deep white matter. The insular ribbon appears intact. Mcginnis-white matter differentiation elsewhere is normal. Cerebral ventricles: Ventricles are mildly enlarged. Paranasal sinuses: No paranasal sinus disease. Mastoid air cells: No mastoid or middle ear fluid. Bones: No fractures are identified. Soft tissues: Probable small scalp laceration in the right parietal region. No hematoma, foreign body or subcutaneous air appreciated. Vasculature: There is no evidence of hyperdense MCA. CT/CT head wo con* [id number] IMPRESSION: 1. No acute intracranial bleed. 2. Chronic small vessel ischemic disease. 3. Atrophic and/or age-related volume loss.
--- NOTE | 2025-02-18 15:46 | XRR_ITS ---
PROCEDURE INFORMATION: Exam: XR Left Wrist Exam date and time: 02/18/2025 4:02 PM Age: 74 years old Clinical indication: Pain; Left; Prior Surgery; Surgery Date: 6+ months; Surgery Type: LT WRIST REPAIR WITH PIN REMOVAL; Additional Info: LT WRIST PAIN/SWELLING AFTER 15FT FALL TECHNIQUE: Imaging protocol: Radiologic exam of the left wrist. Views: 3 or more views. COMPARISON: No relevant prior studies available. FINDINGS: Bones/joints: Comminuted intra-articular pilon fracture of the distal radius. Vertical intra-articular components into the radioscaphoid and radiolunate joint surfaces as well as a transverse fracture through the radial styloid. The ulna appears intact with evidence of an older fracture of the ulnar styloid tip. Degenerative changes in the scaphoid trapezoid joint. Scapholunate distance is normal. Soft tissues: Moderate diffuse swelling around the wrist particularly radial and dorsal side. Elevated pronator fat pad. No soft tissue abnormal air or FB. XR/XR wrist LT min 3V* [id number] IMPRESSION: Comminuted intra-articular pilon fracture of the distal radius. No identified significant articular step-off.
[2025-02-18] MEDS: morphine 4 mg/mL SDV 1 mL IM (16:14)
[2025-02-18] MEDS: tetanus-diphtheria tox (adult) 0.5 mL SDV IM (16:15)
[2025-02-18] MEDS: ondansetron 2 mg/ML SDV 2 mL 4 MG IM (16:15)
[2025-02-18] MEDS: lidocaine-epi 1% 20 mL INJ INJECTION (17:15)
[2025-02-18] MEDS: HYDROcodone-acetaminophen 5-325 mg Tablet 3 TAB PO (18:06)
--- NOTE | 2025-02-19 09:32 | DCPLANNER ---
messaged ortho for er f/u
== END 2025-02-18 18:14 | disposition home or self-care (01) ==
PROVIDERS: Emergency Provider Physician Assistant; PCP Nurse Practitioner Family
DX: S52.502A Unspecified fracture of the lower end of left radius, initial encounter for closed fracture (principal); S01.01XA Laceration without foreign body of scalp, initial encounter; W14.XXXA Fall from tree, initial encounter; Z87.891 Personal history of nicotine dependence
CPT/HCPCS: 12001; 29125; 70450; 72125; 73110; 90471; 90714; 96372; 99284; J2270; J2405; J9999

== ENCOUNTER → 2025-02-27 12:44 | Outpatient (BNVA) | payer MEDICARE, SELFPAY | PROVIDERS: PCP Nurse Practitioner Family; Visit Provider Orthopaedic Surgery | DX: S52.502A Unspecified fracture of the lower end of left radius, initial encounter for closed fracture (principal); W19.XXXA Unspecified fall, initial encounter | CPT/HCPCS: 73110; 99203 ==

== ENCOUNTER 2025-02-27 14:18 | Outpatient (CLI) | payer MEDICARE, SELFPAY | END 2025-02-27 14:19 | disposition home or self-care (01) | LOC: SPT 14:18 | PROVIDERS: PCP Nurse Practitioner Family; Visit Provider Orthopaedic Surgery | DX: Z46.89 Encounter for fitting and adjustment of other specified devices (principal); S52.592D Other fractures of lower end of left radius, subsequent encounter for closed fracture with routine healing; X58.XXXD Exposure to other specified factors, subsequent encounter | CPT/HCPCS: L3982 ==

== ENCOUNTER → 2025-02-28 11:15 | Outpatient (BNVA) | payer MEDICARE, SELFPAY | PROVIDERS: PCP Nurse Practitioner Family; Visit Provider Nurse Practitioner Family | DX: Z79.899 Other long term (current) drug therapy (principal); Z12.5 Encounter for screening for malignant neoplasm of prostate | CPT/HCPCS: 80053; 80061; 82306; 82607; 84443; 85025; G0103 ==

== ENCOUNTER → 2025-03-20 14:04 | Outpatient (BNVA) | payer MEDICARE, SELFPAY | PROVIDERS: PCP Nurse Practitioner Family; Visit Provider Orthopaedic Surgery | DX: S52.502D Unspecified fracture of the lower end of left radius, subsequent encounter for closed fracture with routine healing (principal); W19.XXXD Unspecified fall, subsequent encounter | CPT/HCPCS: 73110; 99024; 99213 ==